=== PATIENT | female | born 1965 | race Caucasian/White ===

== ENCOUNTER → 2016-10-17 | Outpatient (CLI) | payer OTHER ==
--- NOTE | 2016-10-17 12:43 | MR ---
EXAMINATION TYPE: MR lumbar spine wo con DATE OF EXAM: 10/17/2016 12:27 PM COMPARISON: NONE HISTORY: Radiculopathy, lumbar region TECHNIQUE: Multiplanar, multisequence images of the lumbar spine were acquired. L1-L2: Normal disc appearance without desiccation. No herniation, protrusion or disc bulging. No ca nal stenosis is present. Foramina are patent bilaterally. L2-L3: Severe disc desiccation is noted. Moderate broad-based posterior disc bulge greatest paracentr ally and towards the left. Result in left lateral recess stenosis and left foraminal encroachment. De generative endplate marrow change and ventral spondylosis. L3-L4: Mild disc desiccation noted. Mild circumferential disc bulge greatest posteriorly. Mild efface ment ventral thecal sac. Bilateral lateral recess stenosis. Facet joint arthropathy without significa nt foraminal encroachment. L4-L5: Mild disc desiccation noted. Mild circumferential disc bulge greatest posteriorly. Mild efface ment ventral thecal sac. Bilateral lateral recess stenosis. Facet joint arthropathy without significa nt foraminal encroachment. L5-S1: Mild disc desiccation noted. Mild circumferential disc bulge greatest posteriorly. Mild efface ment ventral thecal sac. Bilateral lateral recess stenosis. Facet joint arthropathy without significa nt foraminal encroachment. Lumbar segments are intact. No paraspinal masses are identified. Conus medullaris has a normal appe arance. IMPRESSION: 1. Degenerative disc disease greatest at L2-3 where there is moderate disc bulging and left lateral r ecess stenosis.
== END | disposition home or self-care (01) ==
LOC: RADMRIMAIN 11:51
PROVIDERS: ATTEND Family Medicine
DX: M48.06 Spinal stenosis, lumbar region (principal); M51.16 Intervertebral disc disorders with radiculopathy, lumbar region
CPT/HCPCS: 72148

== ENCOUNTER → 2017-09-19 | Outpatient (CLI) | payer OTHER ==
--- NOTE | 2017-09-19 15:56 | US ---
EXAMINATION TYPE: US thyroid st tissue head/neck DATE OF EXAM: 09/19/2017 COMPARISON: NONE CLINICAL HISTORY: 52-year-old female E03.9 Hypothyroidism unspecified. Pt states recent abnormal labs TECHNIQUE: Multiple sonographic images of the thyroid gland are obtained. FINDINGS: GLAND SIZE: Right Lobe: 4.7 x 1.7 x 1.7 cm Overall Parenchyma: heterogenous Left Lobe: 4.5 x 1.4 x 1.0 cm Overall Parenchyma: heterogeneous Isthmus Thickness: 0.3 cm Bilateral neck scanned, no evidence of lymphadenopathy. IMPRESSION: Heterogeneous thyroid gland. Findings could reflect diffuse thyroiditis or sequela of chronic hypothy roidism. No discrete nodule.
== END | disposition home or self-care (01) ==
LOC: RADUSWWP 14:47
PROVIDERS: ATTEND Family Medicine
DX: E03.9 Hypothyroidism, unspecified (principal)
CPT/HCPCS: 76536

== ENCOUNTER → 2019-02-11 | Outpatient (CLI) | payer OTHER ==
--- NOTE | 2019-02-11 10:29 | MM ---
Reason for exam: screening (asymptomatic). History: Patient is postmenopausal. Physical Findings: A clinical breast exam by your physician is recommended on an annual basis and results should be correlated with mammographic findings. MG 3D Screening Mammo W/Cad Bilateral CC and MLO view(s) were taken. No prior studies available for comparison. The breast tissue is heterogeneously dense. This may lower the sensitivity of mammography. There is no discrete abnormality. ASSESSMENT: Negative, BI-RAD 1 RECOMMENDATION: Routine screening mammogram of both breasts in 1 year.
== END | disposition home or self-care (01) ==
LOC: RADMAMWWP 06:58
PROVIDERS: ATTEND Family Medicine
DX: Z12.31 Encounter for screening mammogram for malignant neoplasm of breast (principal)
CPT/HCPCS: 77063; 77067

== ENCOUNTER → 2020-03-30 | Outpatient (CLI) | payer OTHER ==
--- NOTE | 2020-03-30 11:41 | MR ---
EXAMINATION TYPE: MR lumbar spine wo con DATE OF EXAM: 03/30/2020 COMPARISON: 10/17/2016 HISTORY: Radiculopathy, Lumbar Region TECHNIQUE: T1 and T2 axial and sagittal images of the lumbar spine are submitted. FINDINGS: There is no abnormal signal seen within the visualized spinal cord or paraspinal soft tissu es. There is a scoliotic curvature of the spine. There is a high signal lesion within the liver measu ring 6.8 mm most likely related to small cyst retrospectively stable. Paraspinal muscular atrophy L1-L2: Normal disc appearance without desiccation. No herniation, protrusion or disc bulging. No eleazar l stenosis is present. Foramina are patent bilaterally. L2-L3: Severe disc desiccation is noted. Moderate broad-based posterior disc bulge greatest paracentr ally and towards the left. Result in left lateral recess stenosis and left foraminal encroachment. De generative endplate marrow change and ventral spondylosis. 3 mm retrolisthesis of L2 relative to L3 s table L3-L4: Mild disc desiccation noted. Mild circumferential disc bulge greatest posteriorly. Mild efface ment ventral thecal sac. Bilateral lateral recess stenosis. Advanced facet arthropathy greater on the right. Mild bilateral foraminal encroachment. L4-L5: Mild disc desiccation noted. Mild circumferential disc bulge greatest posteriorly. Mild efface ment ventral thecal sac. Bilateral lateral recess stenosis. Advanced facet arthropathy. Neural forami na are maintained.. L5-S1: Mild disc desiccation noted. Mild circumferential disc bulge greatest posteriorly. Mild efface ment ventral thecal sac. Bilateral lateral recess stenosis. Advanced facet arthropathy without signif icant foraminal encroachment. Lumbar segments are intact. No paraspinal masses are identified. Conus medullaris has a normal appearance. IMPRESSION: 1. Degenerative disc disease greatest at L2-3 where there is moderate disc bulging and left lateral r ecess stenosis. Findings are similar to the prior exam. 2. Small hepatic lesion too small to characterize but likely related to simple cyst
--- NOTE | 2020-03-30 11:47 | XR ---
EXAMINATION TYPE: XR pelvis AP view DATE OF EXAM: 03/30/2020 COMPARISON: None HISTORY: Radiculopathy, pain to right hip TECHNIQUE: AP pelvis FINDINGS: Femoral heads articulate with the acetabulum. Symphysis pubis and sacroiliac joints are nor mal. No acute fractures or dislocations are evident. Normal bowel gas is present. IMPRESSION: 1. Normal AP pelvis
== END | disposition home or self-care (01) ==
LOC: RADMRIMAIN 10:31
PROVIDERS: ATTEND Physical Medicine & Rehabilitation
DX: M48.061 Spinal stenosis, lumbar region without neurogenic claudication (principal); M51.16 Intervertebral disc disorders with radiculopathy, lumbar region; M16.11 Unilateral primary osteoarthritis, right hip
CPT/HCPCS: 72148; 72170

== ENCOUNTER → 2021-05-31 | Outpatient (CLI) | payer BC ==
--- NOTE | 2021-06-02 12:12 | MM ---
Reason for exam: screening (asymptomatic). Last mammogram was performed 2 years and 4 months ago. History: Patient is postmenopausal. Physical Findings: A clinical breast exam by your physician is recommended on an annual basis and results should be correlated with mammographic findings. MG 3D Screening Mammo W/Cad Bilateral CC and MLO view(s) were taken. Prior study comparison: February 11, 2019, bilateral MG 3d screening mammo w/cad. There are scattered fibroglandular densities. No significant changes when compared with prior studies. ASSESSMENT: Benign, BI-RAD 2 RECOMMENDATION: Routine screening mammogram of both breasts in 1 year.
== END | disposition home or self-care (01) ==
LOC: RADMAMWWP 14:40
PROVIDERS: ATTEND Obstetrics & Gynecology Obstetrics
DX: Z12.31 Encounter for screening mammogram for malignant neoplasm of breast (principal); Z78.0 Asymptomatic menopausal state
CPT/HCPCS: 77063; 77067

== ENCOUNTER → 2023-02-28 | Outpatient (CLI) | payer BC ==
--- NOTE | 2023-03-01 20:11 | MM ---
Reason for Exam: Screening (asymptomatic). Last mammogram was performed 1 year(s) and 9 month(s) ago. Patient History: Menarche at age 14. First Full-Term at age 25. Postmenopausal. Risk Values: Lizzie 5 year model risk: 1.3%. NCI Lifetime model risk: 8.0%. Prior Study Comparison: 02/11/2019 Bilateral Screening Mammogram, [facility]. 05/31/2021 Bilateral Screening Mammogram, [facility]. Tissue Density: There are scattered fibroglandular densities. Findings: Analyzed By CAD. Areas of asymmetric density on the right remain unchanged. There is no suspicious group of microcalcifications or new suspicious mass in either breast. Overall Assessment: Benign, BI-RAD 2 Management: Screening Mammogram of both breasts in 1 year. . Patient should continue monthly self-breast exams. A clinical breast exam by your physician is recommended on an annual basis. This exam should not preclude additional follow-up of suspicious palpable abnormalities. Note on Lizzie scores and lifetime risk: 1. A Lizzie score greater than 3% is considered moderate risk. If this is the case, consider specialist referral to assess eligibility for a risk reducing agent. 2. If overall lifetime risk for the development of breast cancer is 20% or higher, the patient may qualify for future screening with alternating mammogram and breast MRI. Electronically signed and approved by: Nora Gregory M.D. Radiologist
== END | disposition home or self-care (01) ==
LOC: RADMAMWWP 06:45
PROVIDERS: ATTEND Obstetrics & Gynecology Obstetrics
DX: Z12.31 Encounter for screening mammogram for malignant neoplasm of breast (principal); Z78.0 Asymptomatic menopausal state
CPT/HCPCS: 77063; 77067

== ENCOUNTER → 2023-08-02 | Outpatient (CLI) | payer BC ==
[2023-08-02 16:47] LABS: Basophils # (A) 0.04 X 10*3/uL (0.00-0.10); Basophils % (A) 0.7 %; Eosinophils # (A) 0.12 X 10*3/uL (0.04-0.35); Eosinophils % (A) 2.1 %; HCT 48.4 % (37.2-46.3); HGB 15.8 g/dL (12.0-15.0); Lymphocytes # (A) 1.55 X 10*3/uL (0.90-5.00); Lymphocytes % (A) 27.1 %; MCH 30.4 pg (27.0-32.0); MCHC 32.6 g/dL (32.0-37.0); MCV 93.3 FL (80.0-97.0); Mean Platelet Volume 11.2 FL (9.5-12.2); Monocytes # (A) 0.44 X 10*3/uL (0.20-1.00); Monocytes % (A) 7.7 %; NRBC Per 100 WBC 0 X 10*3/uL (0.00-0.01); Neutrophils # (A) 3.54 X 10*3/uL (1.80-7.70); Platelet Count 225 X 10*3/uL (140-440); RBC 5.19 X 10*6/uL (4.10-5.20); RDW 11.6 % (11.5-14.5); WBC 5.71 X 10*3/uL (4.50-10.00)
[2023-08-02 17:08] LABS: ALT 17 U/L (8-44); AST 16 U/L (13-35); Albumin 4.6 g/dL (3.8-4.9); Albumin/Globulin Ratio 1.84 Ratio (1.60-3.17); Alkaline Phosphatase 104 U/L (41-126); BUN/Creat Ratio 19.12 Ratio (12.00-20.00); Blood Urea Nitrogen 15.3 mg/dL (9.0-27.0); Calcium 10.2 mg/dL (8.7-10.3); Carbon Dioxide 26.3 mmol/L (21.6-31.8); Chloride 103 mmol/L (96-109); Chol/HDL Ratio 3.24 Ratio; Globulin 2.5 g/dL (1.6-3.3); Glucose 93 mg/dL (70-110); LDL Cholesterol,Calculated 153.4 mg/dL (0.0-131.0); Potassium 4.9 mmol/L (3.5-5.5); Sodium 141 mmol/L (135-145); T4, Free (Free Thyroxine) 1.95 ng/dL (0.80-1.80); Total Bilirubin 0.9 mg/dL (0.3-1.2); Total Protein 7.1 g/dL (6.2-8.2); VLDL Calculation 17.26 mg/dL (5.00-40.00)
== END | disposition home or self-care (01) ==
LOC: LABWHC1 08:14
PROVIDERS: ATTEND Family Medicine
DX: Z00.00 Encounter for general adult medical examination without abnormal findings (principal); Z13.1 Encounter for screening for diabetes mellitus; E03.9 Hypothyroidism, unspecified
CPT/HCPCS: 36415; 80053; 80061; 83036; 84439; 84443; 84481; 85025